=== PATIENT | female | born 1965 | race Caucasian/White ===

== ENCOUNTER → 2017-02-27 | Outpatient (CLI) | payer BC ==
--- NOTE | 2017-02-28 08:01 | XR ---
EXAMINATION TYPE: XR chest 2V DATE OF EXAM: 02/27/2017 COMPARISON: None HISTORY: 51-year-old female cough and shortness of breath TECHNIQUE: Frontal and lateral views FINDINGS: The cardiomediastinal silhouette, aorta, and pulmonary vasculature are within normal limits. Hazy den sities in the lower lungs related to overlying soft tissue. No consolidation or pleural effusion. Lev oconvex scoliotic curvature along the upper thoracic spine. IMPRESSION: No acute cardiopulmonary process.
== END | disposition home or self-care (01) ==
LOC: RADXRYALE 15:32
PROVIDERS: ATTEND Physician Assistant Medical
DX: R05 Cough (principal)
CPT/HCPCS: 71020

== ENCOUNTER → 2018-04-02 | Outpatient (CLI) | payer BC ==
--- NOTE | 2018-04-02 14:52 | XR ---
EXAMINATION TYPE: XR lumbosacral spine min 4V DATE OF EXAM: 04/02/2018 CLINICAL HISTORY: Increasing chronic low back pain. TECHNIQUE: Frontal, lateral, and oblique images of the lumbar spine are obtained. COMPARISON: Lumbar spine x-ray October 28, 2013 FINDINGS: There are 6 lumbar type vertebral bodies redemonstrated. The lumbar spine redemonstrates satisfactory alignment without evidence of acute fracture or dislocation. Vertebral body heights salima in within normal limits. There is persistent and more prominent moderate to advanced disc space narro wing L5- L6 level. There is mild anterior spurring L2-L3 level with Schmorl node anterior superior L3 endplate redemonstrated. There is additional mild to minimal multilevel anterior and lateral spurrin g. The oblique images appear within normal limits. The overlying soft tissue appears unremarkable. IMPRESSION: As above, most prominent degenerative findings L5- L6 level noted with some progression f rom 2013 study.
== END | disposition home or self-care (01) ==
LOC: RADXRYALE 14:22
PROVIDERS: ATTEND Physician Assistant Medical
DX: M47.816 Spondylosis without myelopathy or radiculopathy, lumbar region (principal)
CPT/HCPCS: 72110

== ENCOUNTER → 2018-04-17 | Outpatient (CLI) | payer BC ==
--- NOTE | 2018-04-22 09:47 | MM ---
Reason for exam: screening (asymptomatic). Last mammogram was performed 2 years and 9 months ago. History: Patient is postmenopausal. Family history of breast cancer in mother at age 48. Physical Findings: A clinical breast exam by your physician is recommended on an annual basis and results should be correlated with mammographic findings. MG 3D Screening Mammo W/Cad Bilateral CC and MLO view(s) were taken. Prior study comparison: July 08, 2015, bilateral MG screening mammo w CAD. December 19, 2012, bilateral digital screening mammo w/CAD. There are scattered fibroglandular densities. No suspicious abnormality. No significant changes when compared with prior studies. ASSESSMENT: Negative, BI-RAD 1 RECOMMENDATION: Routine screening mammogram of both breasts in 1 year.
== END | disposition home or self-care (01) ==
LOC: RADMAMWWP 15:17
PROVIDERS: ATTEND Family Medicine
DX: Z12.39 Encounter for other screening for malignant neoplasm of breast (principal)
CPT/HCPCS: 77063; 77067

== ENCOUNTER → 2018-06-18 | Outpatient (CLI) | payer BC ==
--- NOTE | 2018-06-18 13:59 | US ---
EXAMINATION TYPE: US abdomen complete DATE OF EXAM: 06/18/2018 COMPARISON: US 2009 CLINICAL HISTORY: K30 dyspepsia; R74.0 elevation of levels of.... Occasional RUQ pain and N/V EXAM MEASUREMENTS: Liver Length: 14.5 cm Gallbladder Wall: 0.2 cm CBD: 0.3 cm Spleen: 10.8 cm Right Kidney: 9.5 x 5.5 x 5.3 cm Left Kidney: 9.5 x 5.4 x 5.1 cm Pancreas: visualized portions appear hyperechoic, head and tail limited by overlying midline bowel g as Liver: course echotexture, increased echogenicity Gallbladder: wnl Evidence for sonographic Watkins's sign: no CBD: visualized portions wnl, limited by overlying bowel gas Spleen: wnl Right Kidney: wnl Left Kidney: wnl Upper IVC: wnl Abd Aorta: wnl The visualized liver is heterogeneously hyperechoic. Evaluation for focal masses suboptimal due to th e heterogeneity. No intrahepatic ductal dilatation is seen. The intrahepatic portion of the IVC and proximal abdominal aorta are within normal limits. There is no evidence of cholelithiasis. Common b ile duct is unremarkable. The visualized portions of the pancreas are homogenous. The spleen is unr emarkable. Kidneys are symmetric and free of hydronephrosis. No renal lesions are seen. IMPRESSION: Marked heterogeneous hyperechoic appearance of liver could reflect product of diffuse fat ty infiltration or product of underlying liver hepatocellular disease. Imaging guided random biopsy f or tissue analysis can be performed if desired.
== END | disposition home or self-care (01) ==
LOC: RADUSWWP 07:34
PROVIDERS: ATTEND Internal Medicine Gastroenterology
DX: K76.89 Other specified diseases of liver (principal); Z88.2 Allergy status to sulfonamides
CPT/HCPCS: 76700

== ENCOUNTER → 2018-08-20 | Outpatient (CLI) | payer BC ==
--- NOTE | 2018-08-20 15:46 | XR ---
EXAMINATION TYPE: XR lumbosacral spine min 4V DATE OF EXAM: 08/20/2018 CLINICAL HISTORY: Low back pain TECHNIQUE: Frontal, lateral, and oblique images of the lumbar spine are obtained. COMPARISON: 04/02/2018 FINDINGS: Again there are 6 lumbar type vertebral bodies identified. The lumbar spine shows satisfac tory alignment without evidence of acute fracture or dislocation. Vertebral body heights and disk spa ce heights are within normal limits. There is redemonstration of intervertebral disc space narrowing at L5-L6 and L6-S1 with small anterior osteophytes throughout and Schmorl's node of the superior endp late of L3. Oblique images suggest neural foraminal narrowing at L5-S1. The overlying soft tissue ap pears unremarkable. IMPRESSION: Moderate multilevel degenerative disc disease as seen on the prior of 04/02/2018 with sugge stion of neural foraminal narrowing at L5-L6 as there are 6 lumbar type vertebral bodies.
== END | disposition home or self-care (01) ==
LOC: RADXRYALE 15:19
PROVIDERS: ATTEND Physician Assistant Medical
DX: M51.36 Other intervertebral disc degeneration, lumbar region (principal)
CPT/HCPCS: 72110

== ENCOUNTER → 2018-12-19 | Outpatient (CLI) | payer BC ==
--- NOTE | 2018-12-19 22:14 | MR ---
EXAMINATION TYPE: MR lumbar spine wo con DATE OF EXAM: 12/19/2018 6:47 PM COMPARISON: NONE HISTORY: Low back pain Multiplanar, MultiSpin echo imaging of the lumbar spine was performed. L1-L2: Normal disc appearance without desiccation. No herniation, protrusion or disc bulging. No ca nal stenosis is present. Foramina are patent bilaterally. L2-L3: Mild disc desiccation. Posterior disc bulge without herniation. No central stenosis or foramin al encroachment. L3-L4: Severe disc desiccation with posterocentral disc bulge. Broad-based disc herniation difficult to exclude. Effacement ventral thecal sac with bilateral lateral recess stenosis and foraminal encroa chment. Right foraminal encroachment. L4-L5: Severe disc desiccation with posterocentral disc bulge. Broad-based disc herniation difficult to exclude. Effacement ventral thecal sac with bilateral lateral recess stenosis and foraminal encroa chment. Right foraminal encroachment. L5-S1: Mild disc desiccation. Posterior disc bulge with annular tear. Mild effacement ventral thecal sac. No mitzy herniation or central stenosis. Lumbar segments are intact. No paraspinal masses are identified. Conus medullaris has a normal appe arance. Scattered ventral spondylosis and degenerative endplate marrow change. IMPRESSION: 1. Multilevel degenerative disc disease with disc bulging. Bilateral lateral recess stenosis at L4-3- 4 and L4-5. See above.
== END | disposition home or self-care (01) ==
LOC: RADMRIMAIN 18:13
PROVIDERS: ATTEND Family Medicine
DX: M48.061 Spinal stenosis, lumbar region without neurogenic claudication (principal); M51.36 Other intervertebral disc degeneration, lumbar region; M51.26 Other intervertebral disc displacement, lumbar region
CPT/HCPCS: 72148

== ENCOUNTER → 2021-09-07 | Outpatient (CLI) | payer BC ==
--- NOTE | 2021-09-11 13:13 | MM ---
Reason for exam: screening (asymptomatic). Last mammogram was performed 3 years and 5 months ago. History: Patient is postmenopausal. Family history of breast cancer in mother at age 48. Physical Findings: A clinical breast exam by your physician is recommended on an annual basis and results should be correlated with mammographic findings. MG 3D Screening Mammo W/Cad Bilateral CC and MLO view(s) were taken. Prior study comparison: April 17, 2018, bilateral MG 3d screening mammo w/cad. July 08, 2015, bilateral MG screening mammo w CAD. There are scattered fibroglandular densities. No significant changes when compared with prior studies. ASSESSMENT: Benign, BI-RAD 2 RECOMMENDATION: Routine screening mammogram of both breasts in 1 year.
== END | disposition home or self-care (01) ==
LOC: RADMAMWWP 14:36
PROVIDERS: ATTEND Family Medicine
DX: Z12.31 Encounter for screening mammogram for malignant neoplasm of breast (principal); Z78.0 Asymptomatic menopausal state; Z80.3 Family history of malignant neoplasm of breast
CPT/HCPCS: 77063; 77067

== ENCOUNTER → 2022-07-23 | Outpatient (CLI) | payer BC ==
--- NOTE | 2022-07-23 15:15 | MR ---
EXAMINATION TYPE: MR lumbar spine wo con DATE OF EXAM: 07/23/2022 2:58 PM COMPARISON: 12/19/2018. CLINICAL INDICATION:Female, 57 years old with history of M51.36 intervertebral disc degeneration; TECHNIQUE: Multi planar, multi sequence imaging was performed utilizing: T1-weighted, T2-weighted, a nd turbo inversion recovery imaging of the lumbar spine. IV Contrast: None. FINDINGS: Alignment: The lumbar vertebral bodies have preserved heights and alignment. Cord: The conus medullaris and the distal spinal cord appear unremarkable with regards to their signa l intensity and morphology. Bones/Discs: Scattered Modic end plate changes are seen throughout the lumbar spine. Disc space narro wing is present along with Schmorl's nodes. Multilevel degenerative disc disease is noted and most pr onounced at the L3-L4 and L4-L5.. Multilevel disc desiccation is present. L1-L2: No evidence of significant spinal canal stenosis or neural foraminal stenosis. L2-L3: Disc bulge and facet joint arthropathy result in no significant spinal canal stenosis and mode rate bilateral neural foraminal stenosis. L3-L4: Disc bulge and facet joint arthropathy result in no significant spinal canal stenosis and mode rate bilateral neural foraminal stenosis. L4-L5: Disc bulge and facet joint arthropathy result in no significant spinal canal stenosis and mode rate bilateral neural foraminal stenosis. L5-S1: Disc bulge and facet joint arthropathy result in no significant spinal canal stenosis and mode rate right and mild left neural foraminal stenosis. Other findings: Parapelvic renal cysts are seen bilaterally. IMPRESSION: 1. No definitive evidence of disc herniation or significant spinal canal or neural foraminal stenosi s. 2. Multilevel disc degeneration with associated osteoarthritic changes.
== END | disposition home or self-care (01) ==
LOC: RADMRIMAIN 14:15
PROVIDERS: ATTEND Family Medicine
DX: M51.36 Other intervertebral disc degeneration, lumbar region (principal); M47.816 Spondylosis without myelopathy or radiculopathy, lumbar region; R29.2 Abnormal reflex; R20.2 Paresthesia of skin
CPT/HCPCS: 72148

== ENCOUNTER → 2024-04-29 | Outpatient (CLI) | payer BC ==
--- NOTE | 2024-05-05 14:56 | MM ---
Reason for Exam: Screening (asymptomatic). Last mammogram was performed 2 year(s) and 7 month(s) ago. Patient History: Menarche at age 10. First Full-Term at age 26. Left ovary removed at age 43. Right ovary removed at age 43. Hysterectomy at age 43. Postmenopausal. Mother had breast cancer, age 48. Risk Values: Irasema 5 year model risk: 2.9%. NCI Lifetime model risk: 13.5%. Prior Study Comparison: 07/08/2015 Bilateral Screening Mammogram, [facility]. 04/17/2018 Bilateral Screening Mammogram, [facility]. 09/07/2021 Bilateral Screening Mammogram, [facility]. Tissue Density: There are scattered areas of fibroglandular density. Findings: Analyzed By CAD. Right breast: There is no suspicious group of microcalcifications or new suspicious mass. Left breast: There is no suspicious group of microcalcifications or new suspicious mass. Overall Assessment: Negative, BI-RAD 1 Management: Screening Mammogram of both breasts in [address] [facility] will attempt to contact patient to return for supplemental views and ultrasound if indicated. Patient should continue monthly self-breast exams. A clinical breast exam by your physician is recommended on an annual basis. This exam should not preclude additional follow-up of suspicious palpable abnormalities. Note on Irasema scores and lifetime risk: 1. A Irasema score greater than 3% is considered moderate risk. If this is the case, consider specialist referral to assess eligibility for a risk reducing agent. 2. If overall lifetime risk for the development of breast cancer is 20% or higher, the patient may qualify for future screening with alternating mammogram and breast MRI. Electronically signed and approved by: Davonte Castillo DO
== END | disposition home or self-care (01) ==
LOC: RADMAMWWP 13:07
PROVIDERS: ATTEND Family Medicine
DX: Z12.31 Encounter for screening mammogram for malignant neoplasm of breast
CPT/HCPCS: 77063; 77067